=== PATIENT | female | born 1985 | race Caucasian/White ===

== ENCOUNTER 2020-05-22 15:09 | Observation (INO) | payer OTHER ==
[~2020-05-22] VITALS: Ht 149.9 cm; Wt 77.1 kg
[~2020-05-22 15:09] MED LIST: IBUP-671 PO; [UNRECOGNIZED DRUG - CODE] PO
[2020-05-22 16:34] VITALS: BP 105/60
[2020-05-22] MEDS ORDERED: RINGERS SOLUTION,LACTATED 1,000 ML IV SCH (17:15)
[2020-05-22] MEDS ORDERED: DEXTROSE 5%-0.9% SODIUM CHL 1,000 ML IV ONE (17:45)
== END 2020-05-22 19:38 | disposition home or self-care (01) ==
LOC: 4S 15:20
PROVIDERS: ADMIT Obstetrics & Gynecology; ATTEND Obstetrics & Gynecology
DX: O09.523 Supervision of elderly multigravida, third trimester (principal); Z3A.36 36 weeks gestation of pregnancy
CPT/HCPCS: 76805; 81001; 96360 ×2; 96361 ×2; 99219; J7042; J7120

== ENCOUNTER 2020-05-28 09:10 | Observation (INO) | payer OTHER ==
[~2020-05-28] VITALS: Ht 149.9 cm; Wt 78.5 kg
[2020-05-28 09:33] VITALS: BP 105/57
== END 2020-05-28 11:35 | disposition home or self-care (01) ==
LOC: 4S 09:10
PROVIDERS: ADMIT Obstetrics & Gynecology; ATTEND Obstetrics & Gynecology
DX: O09.523 Supervision of elderly multigravida, third trimester (principal); Z3A.37 37 weeks gestation of pregnancy
CPT/HCPCS: 59025; 76805; 99219

== ENCOUNTER 2020-06-01 10:06 | Observation (INO) | payer OTHER ==
[2020-06-01 10:24] VITALS: BP 106/58
== END 2020-06-01 11:55 | disposition home or self-care (01) ==
LOC: 4S 10:06
PROVIDERS: ADMIT Obstetrics & Gynecology; ATTEND Obstetrics & Gynecology
DX: O09.523 Supervision of elderly multigravida, third trimester (principal); Z3A.38 38 weeks gestation of pregnancy
CPT/HCPCS: 59025; 76805; 99219

== ENCOUNTER 2020-06-06 14:10 | Observation (INO) | payer OTHER ==
[~2020-06-06] VITALS: Ht 147.3 cm; Wt 79.4 kg
[2020-06-06 14:38] VITALS: BP 113/61
[2020-06-06] MEDS ORDERED: RINGERS SOLUTION,LACTATED 1,000 ML IV SCH (15:15)
[2020-06-06] MEDS ORDERED: DEXTROSE 5%-0.45% SODIUM CHL 1,000 ML IV ONE (16:45)
[2020-06-06 19:52] LABS: COVID AG,FIA SOURCE NASAL SWAB
== END 2020-06-06 18:05 | disposition home or self-care (01) ==
LOC: 4S 14:10
PROVIDERS: ADMIT Obstetrics & Gynecology; ATTEND Obstetrics & Gynecology
DX: O09.523 Supervision of elderly multigravida, third trimester (principal); Z20.822 Contact with and (suspected) exposure to COVID-19; Z3A.38 38 weeks gestation of pregnancy
CPT/HCPCS: 59025; 81001; 87426; 96360; 96361; 99219; J7120; X7700

== ENCOUNTER 2023-07-25 09:26 | Emergency (ER) | payer OTHER ==
[~2023-07-25] VITALS: Ht 149.9 cm; Wt 72.7 kg
[~2023-07-25 09:26] MED LIST changes: +IBUP-1493 PO; -IBUP-671 PO; -[UNRECOGNIZED DRUG - CODE] PO
[2023-07-25 09:33] VITALS: BP 124/83; PULSE 81; RESP 18; TEMP 98.4
[2023-07-25] MEDS: FLUORESCEIN SODIUM 1 MG STRIP OD ONE (10:44)
== END 2023-07-25 11:00 | disposition home or self-care (01) ==
LOC: EMS 09:26
DX: H10.9 Unspecified conjunctivitis (principal); Z90.49 Acquired absence of other specified parts of digestive tract; Z98.890 Other specified postprocedural states
CPT/HCPCS: 99283